=== PATIENT | male | born 1980 | race Caucasian/White ===

== ENCOUNTER 2021-04-29 12:51 | Outpatient (CLI) | payer OTHER, SELFPAY ==
--- NOTE | ~2021-04-29 | MR_ITS ---
EXAMINATION: MR knee LT w con DATE: 04/29/2021 14:45 INDICATION: Left knee medial meniscal repair post prior tear presenting with medial knee pain. TECHNIQUE: Magnetic resonance imaging (MRI) of the left knee was performed with intra-articular but w ithout intravenous contrast. Details of the contrast mixture and joint injection have been dictated s eparately. Sequences included axial, sagittal and coronal PD-weighted FS FSE, and sagittal and lam l T1-weighted FS FSE. COMPARISON: Left knee MR dated 03/08/16 FINDINGS: Medial compartment: The medial meniscal body and posterior horn are small. There is a large approximately 2.5 cm long men iscal flap arising at the anterior body which likely accounts for the loss of meniscal tissue of the posterior horn and body and which is flipped anteriorly and superiorly into the recess at the junctio n of the medial compartment and the inferior medial gutter of the suprapatellar pouch. There is an ir regular anterior margin to the lateral side of the posterior horn which may represent the tear margin at the opposite side of the meniscal flap donor site. There foci of susceptibility artifact along th e periphery of the body of the medial meniscus consistent with reported history of a prior bucket-harrell dle tear repair. Articular cartilage is normal. Lateral compartment: Lateral meniscus is normal. Articular cartilage is normal. Patellofemoral compartment: Articular cartilage is normal. Ligaments and tendons: Anterior and posterior cruciate ligaments are normal. The medial collateral ligament and fibular maricruz ateral ligament complex are normal. The extensor mechanism is normal. The visualized medial and later al hamstring tendons as well as the iliotibial band are normal. Fluid: No loose osteochondral bodies identified within the contrast opacified joint space. Contrast extends into a moderate-sized Cordova's cyst which measures 5.4 cm AP by 1.7 x 1.6 cm in maximal orthogonal dim ensions. Osseous/other: No interval change since 2015 in an approximately 8 mm lesion in the distal femoral metaphysis which is isointense to the cartilage on T1 and PD-weighted images most likely representing a small enchondr kimberly. Marrow signal is otherwise normal with homogeneous low signal on fat saturated T1-weighted imagi ng. No fracture. IMPRESSION: 1. Recurrent tear of a reportedly previously repaired medial meniscal tear with displacement of a lar ge meniscal flap from its attachment at the anterior body which likely arises from the now small body and posterior horn. 2. Small Cordova's cyst. Reviewed, dictated and finalized at location A. [employer] SYSTEMS ANALYST IMPRESSION: 1. Recurrent tear of a reportedly previously repaired medial meniscal tear with displacement of a large meniscal flap from its attachment at the anterior body which likely arises from the now small body and posterior horn. 2. Small Cordova's cyst.
--- NOTE | ~2021-04-29 | XR_ITS ---
EXAMINATION: XR fl inj knee LT for MR/CT DATE: 04/29/2021 14:23 INDICATION: Medial left knee pain with prior medial meniscal tear and repair. TECHNIQUE: A time-out was performed to verify the patient's name, date of , and procedure to b e performed. The procedure including the risks, benefits, and alternatives was discussed with the pat ient. Risks discussed included bleeding and infection. The patient understood the risks and agreed to proceed. The skin overlying the lateral side of the left knee joint was prepped and draped in usual sterile fashion. Anesthetic was administered with 1% lidocaine subcutaneously. A 22 G needle was a dvanced under fluoroscopic guidance into the joint. Injection of 1 mL of Omnipaque 240 confirmed int ra-articular position of the needle. Subsequently, injectate consisting of 45 mL of 7:3:2 mixture of sterile saline:Omnipaque 240:1% lidocaine mixed 200:1 with 529 mg/mL Multihance gadolinium contrast was injected. Intra-articular administration of contrast was confirmed with intermittent fluoroscopy. The needle was removed and the entry site was cleaned and dressed. There were no immediate complicat ions. Fluoroscopy exposure time was 0.2 minutes. The total number of images was 23. Total DAP was 0.8 46 mGycm^2 FINDINGS: Real-time fluoroscopy demonstrates the needle in the left knee joint. IMPRESSION: 1. Left knee joint injection of a dilute gadolinium contrast mixture for subsequent MRI arthrogram wh ich will be dictated separately. Reviewed, dictated and finalized at location A. KSMITH IMPRESSION: 1. Left knee joint injection of a dilute gadolinium contrast mixture for subseq uent MRI arthrogram which will be dictated separately.
== END 2021-04-29 12:52 | disposition home or self-care (01) ==
LOC: ANHIMG 13:00
PROVIDERS: PCP Family Medicine; Visit Provider Physician Assistant
DX: M25.562 Pain in left knee (principal); Z98.890 Other specified postprocedural states; M71.22 Synovial cyst of popliteal space [Baker], left knee
CPT/HCPCS: 20610; 73722; 77002; A9577

== ENCOUNTER 2021-12-22 09:29 | Emergency (ER) | payer OTHER, SELFPAY ==
[2021-12-22 09:42] VITALS: BP 129/93; PULSE 67; RESP 18; TEMP 36.8; O2SAT 99
[2021-12-22 09:44] VITALS: BP 129/93; PULSE 67; RESP 18; TEMP 36.8; O2SAT 99
--- NOTE | 2021-12-22 09:52 | ED.EAR ---
HPI - Ear Problem General Chief complaint: Ear Stated complaint: left ear clogged Time Seen by Provider: 12/22/21 09:52 Source: patient, RN notes reviewed and old records reviewed Mode of arrival: ambulatory Limitations: no limitations History of Present Illness HPI Narrative: 41 year old male presents to [facility] care with complaints of left ear pain, fullness and decreased hearing since swimming on Sunday. Patient reports that he has put alcohol and peroxide in his left ear, states he has a lot of ear wax. Patient denies any known fevers, chills or sweats, he denies any sore throat or any nasal congestion or drainage. Patient has some tragal tenderness to left ear on examination, patient denies any ear drainage. MD Complaint: ear pain Location: left ear Duration: constant Related Data Allergies Allergy/AdvReac Type Severity Reaction Status Date / Time No Known Allergies Allergy Verified 12/22/21 09:43 Review of Systems Review of Systems: CONSTITUTIONAL: Denies fever, chills, or sweats. EYES: Denies visual changes, redness, or discharge. ENT: Denies rhinorrhea, congestion, sore throat,positive for left ear otalgia. CARDIOVASCULAR: Denies chest pain, palpitations, or edema. RESPIRATORY: Denies cough or dyspnea. GASTROINTESTINAL: Denies abdominal pain, nausea, vomiting, or diarrhea. GENITOURINARY: Denies dysuria or hematuria. SKIN: Denies rash or itching. MUSCULOSKELETAL: Denies back pain, joint pain, or myalgia. NEUROLOGIC: Denies headache, numbness, or weakness. PSYCHIATRIC: Denies anxiety or depression. All systems reviewed & are unremarkable except as noted in HPI and below PMFSH Past Medical History Medical History (Updated 12/22/21 @ 12:55 by Gracie Doan NP) No pertinent past medical history Surgical History Surgical History (Updated 12/22/21 @ 11:16 by Gracie Doan NP) H/O arthroscopy of left knee Family History Family History Father Diabetes mellitus Social History Social History Smoking status: Never smoker Alcohol intake: current Comments At time of signature, agree with nursing past medical, surgical, social and family history. There is no relevant family history pertinent to the presenting complaint Exam Narrative: GENERAL: Well-appearing, well-nourished, and in no acute distress. HEAD: Normocephalic, atraumatic. EYES: PERRLA and EOMI. ENT: Nares clear, no rhinorrhea or epistaxis. Mucous membranes moist.Right TM normal with good light reflex, Left TM red with some bulging, no drainage in ear canal, throat pink with no lesions or exudates NECK: Supple.no lymphadenopathy CHEST: Clear to auscultation. No respiratory distress.SAO2 99% on room air HEART: Regular rate and rhythm. No murmur heard. Normal peripheral pulses. ABDOMEN: Soft, nontender, nondistended, normal active bowel sounds. EXTREMITIES: Normal range of motion. No edema. SKIN: Warm, dry, no rash. NEURO: No focal deficits. Alert and oriented x3. Course Course Level of Care: Express Care Visit Vital Signs Vital signs: Vital Signs Temperature 36.8 C 12/22/21 09:42 Pulse Rate 67 12/22/21 09:42 Respiratory Rate 18 12/22/21 09:42 Blood Pressure 129/93 H 12/22/21 09:42 Pulse Oximetry 99 12/22/21 09:42 Oxygen Delivery Room Air 12/22/21 09:42 Temperature 36.8 C 12/22/21 09:44 Pulse Rate 67 12/22/21 09:44 Respiratory Rate 18 12/22/21 09:44 Blood Pressure 129/93 H 12/22/21 09:44 Pulse Oximetry 99 12/22/21 09:44 Oxygen Delivery Room Air 12/22/21 09:44 Medical Decision Making Differential Diagnosis Differential Diagnosis: left otitis media, otitis externa, left ear pain, decreased hearing left ear Medical Records Medical records reviewed: Yes I reviewed the external patient's medical records. Vital Signs Vital Signs: Vital Signs Temperature 36.8 C
== END 2021-12-22 10:05 | disposition home or self-care (01) ==
PROVIDERS: Emergency Provider Registered Nurse; PCP Family Medicine
DX: H65.02 Acute serous otitis media, left ear (principal)
CPT/HCPCS: 99213; G0463